=== PATIENT | female | born 1980 | race Caucasian/White ===

== ENCOUNTER 2020-08-04 07:50 | Inpatient (IN) | payer MEDICAID ==
--- NOTE | 2020-08-01 11:00 | NUR ---
ELEVATED BLOOD PRESSURE-170/118, REPEAT 149/92, PATIENT STATES SHE DIDN'T TAKE BLOOD PRESSURE MEDICATION TODAY, INSTRUCTED TO TAKE BP MED CRUZ
[2020-08-01 11:02] LABS: BASOPHILS 0.6 % (0-2); EOSINOPHILS 3.3 % (0-7); HEMATOCRIT 44.1 % (36.0-48.0); HEMOGLOBIN 14.5 g/dL (12-16); IMMATURE GRANULOCYTES 0.6 % (0-5); LYMPHOCYTE ABS# 1.68 10x3/uL (1.18-3.74); LYMPHOCYTES 23.4 % (15-50); MCH 32.7 pg (26.0-34.0); MCHC 32.9 g/dL (31.0-37.0); MCV 99.5 fL (80.0-100.0); MEAN PLATELET VOLUME 9.2 fL (7.4-10.4); MONOCYTES 6.3 % (2-11); NEUTROPHIL ABS# 4.73 10x3/uL (1.56-6.13); NEUTROPHILS 65.8 % (40-80); PLATELET COUNT 212 10x3/uL (130-400); RBC 4.43 10x6/uL (4.00-5.40); RDW 13.2 % (11.5-14.5); WBC 7.2 10x3/uL (4.8-10.8)
[2020-08-01 11:08] LABS: ANION GAP 8.7 mmol/L (8-16); CALCIUM 8.6 mg/dL (8.5-10.1); CARBON DIOXIDE 29.4 mmol/L (21.0-32.0); CREATININE - SERUM 1.1 mg/dL (0.6-1.3); POTASSIUM - SERUM 4.1 mmol/L (3.5-5.1)
[2020-08-01 11:17] LABS: BILIRUBIN NEGATIVE (NEGATIVE); KETONE NEGATIVE (NEGATIVE); NITRITE NEGATIVE (NEGATIVE); UROBILINOGEN NORMAL mg/dL (< 2)
[2020-08-01 11:19] LABS: APTT 26.1 SECONDS (22.8-39.4); INR 0.99 (0.85-1.17); PROTIME 12.1 SECONDS (11.6-15.0)
[2020-08-04] VITALS (11 sets, daily range): BP systolic 113–159; BP diastolic 61–110; Ht 170.2 cm; Wt 103.6 kg
[~2020-08-04] VITALS: Ht 170.2 cm; Wt 103.6 kg
--- NOTE | ~2020-08-04 | OP ---
PATIENT NAME: COLIN WALLACE MEDICAL RECORD: [id number] :80 LOCATION:D. D.1207 ADMISSION DATE: SURGEON: STUART LAO MD DATE OF OPERATION: 08/04/2020 PREOPERATIVE DIAGNOSES: 1. Osteoarthritis, right knee. 2. Painful right partial knee replacement. POSTOPERATIVE DIAGNOSES: 1. Osteoarthritis, right knee. 2. Painful right partial knee replacement. PROCEDURES PERFORMED: 1. Right total knee arthroplasty. 2. Removal of patellofemoral component, right knee. INDICATIONS FOR THE PROCEDURE: Ms. Wallace is a 39-year-old female with history of right patellofemoral replacement per Dr. Dudley approximately 3 years ago. She has been having worsening pains in the knee for the last year or so. Attempted injections without much relief and she has elected to proceed with right total knee arthroplasty. Risks, benefits and alternatives of surgery were discussed with the patient and consent was obtained. DESCRIPTION OF THE PROCEDURE: The patient was met in the holding area where her identity and confirmation of procedure was performed. The right lower extremity was marked. She was taken to the operating room where she was placed supine on the operating table and anesthesia was administered. A tourniquet was applied to the right leg. The right leg was prepped and draped in a sterile fashion. The patient received preoperative antibiotics as well as TXA and a timeout was performed before initiating the case. On initiation of the case, the leg was exsanguinated and the tourniquet was raised. Total tourniquet time was 115 minutes. The knee was positioned in flexion. An incision was made over the anterior knee in line with her previous incision. We dissected down to the extensor mechanism and the Ethibond suture was easily identified. We incised through the quad tendon along its medial border curving medially around the patella and down the medial border of the patellar tendon. The Ethibond suture was removed with rongeur. The knee was then taken into extension and tissue along the posterior fat pad of the patella and over the anterior distal femur was released. The implant appeared to be well fixed without any evidence of infection or other abnormalities. Flap of tissue was elevated off the medial tibial plateau and a portion of the medial meniscus was excised. Patella was then everted. The knee was taken into flexion. On inspection of the patella, there was a bone spur along its lateral border and a small area that had rubbed superiorly. The remainder of the patella was well fixed and in good condition. The tissue from around the patella was debrided. The femoral implant was then removed using osteotomes under the lateral edge, we were then able to easily tap it with minimal bone loss. We then continued with our procedure for primary total knee arthroplasty. Our femoral tunnel was drilled and our femoral guide was inserted. The distal femoral cutting block was then pinned into position. Our distal femur cut was completed. The femur was then sized to a size 4 and our 4-in-1 cutting block was pinned into place. Anterior, posterior and chamfer cuts were then completed and were smoothed with our previous cut. No additional bone was required to be removed off the anterior cortex. The osteophytes were then removed from around the edges of the distal femur. There had been OPERATIVE REPORT [id number] COLIN WALLACE significant wear into the cartilage of the lateral femoral condyle from the implant, which was likely the source of her pain. The femoral trial for our box cut was then placed and adjusted for position over the distal femur and then pinned into place. A box cut was completed using reciprocating saw and osteotome. We then moved to the tibia. Our femur was retracted posteriorly and our tibia was brought forward. Extramedullary tibial guide was placed and adjusted for alignment taking 4 mm off the medial tibial plateau. Our tibial cut was completed and the tibia was sized to a size 3. We then placed our femoral trial and trialed this with a size 9 poly, it was felt to be a little tight. We therefore removed these components and replaced our tibial cutting guide taking an additional 3 mm off the tibial plateau. It was again sized to a size 3 and the tibial component was pinned into place. This was again trialled with the femur and a size 10 and 11 poly, felt to have good fit and stability throughout range of motion with the 11 poly. The poly and the femoral component were removed and her tibia was prepared using a punch. The laminar concrete spreader was then inserted. Osteophytes were removed from the posterior aspect of the distal femur. Knee was then irrigated thoroughly with saline. The patellar component was well fixed and therefore did not require any further procedures. The knee was irrigated thoroughly with saline. The joint solution was injected around the capsule of the proximal tibia and the distal femur. Knee was repositioned in flexion and bony ends were dried. Our final components were then cemented into place and excess cement was removed throughout this process. The trial poly was placed and the knee was held in full extension while the cement was allowed to dry. We then trialed this with a size 10 and 11 poly, felt to have good fit and stability with the 11 final and our final size 11 posterior stabilized poly was placed and tapped into position. It was taken through range of motion, had good fit and stability throughout range of motion. Good tracking of the patella. The knee was irrigated thoroughly with saline. A drain was placed in the lateral gutter. The extensor mechanism was closed with 0 Vicryl suture. Subcutaneous tissue was irrigated thoroughly with saline. Subcutaneous tissue was closed with 3-0 Vicryl and the skin was closed with jassi. Sterile dressing was placed. The patient was turned back over to anesthesia where she was awakened, extubated, and taken to recovery room in stable condition. POSTOPERATIVE PLAN: The patient is going to be admitted for routine postoperative care. She will receive 24 hours of postoperative antibiotics and will be started on DVT prophylaxis tomorrow. Physical therapy will be consulted to assist with mobilization, weightbearing as tolerated, right lower extremity. Plan home with home health upon discharge. ANESTHESIA: Spinal with peripheral nerve block. COMPLICATIONS: None. ESTIMATED BLOOD LOSS: 100 mL. TRANSINT:[id number] Voice Confirmation ID: [id number] DOCUMENT ID: [id number] OPERATIVE REPORT [id number] COLIN WALLACE BRENT M MD CC: [id number] DICTATION DATE: 08/04/20 1526 ASSISTANT PROFESSOR OF BIOLOGY: 08/04/[address] [facility] [address] [place] [address]
[2020-08-04] MEDS ORDERED: ABILIFY10 MG PO (08:13)
[2020-08-04] MEDS ORDERED: TOPAMAX50 MG PO (08:14)
[2020-08-04] MEDS ORDERED: CYMBALTA60 MG PO (08:15)
[2020-08-04] MEDS ORDERED: CELEBREX200 MG PO (08:15)
[2020-08-04] MEDS ORDERED: ROPINIROLE HCL4 M1 PO (08:15)
[2020-08-04] MEDS ORDERED: GABAPENTIN300 MG PO (08:16)
[2020-08-04] MEDS ORDERED: TOPROL XL50 MG PO (08:16)
--- NOTE | 2020-08-04 19:00 | NUR ---
REPORT GIVEN BY MAGALI ROSE
--- NOTE | 2020-08-04 19:00 | NUR ---
REPORT GIVEN BY MAGALI MARTINEZ
--- NOTE | 2020-08-04 20:00 | NUR ---
WENT BY PT ROOM TO INTROCUCE MYSELF. PT UNDERSTANDS THAT I WILL BE BACK LATER FOR FULL ASSESSMENT
--- NOTE | 2020-08-04 20:30 | NUR ---
ASSESSMENT COMPLETED. PT HAS BEEN AWAKE, ALERT AND ORIENTED ALL SHIFT. NO C/O PAIN AT THIS TIME. I JUST TOOK PT CMP OFF. SHE HAS A MONTOYA CATHETER IN PLACE. SHE IS SUPPOSED TO LUIS O2 AT 2L BUT SHE HAS THIS OFF NOW. HER PULSES IN HER FEET ARE GOOD. SHE HAS SOME NERUOPATHY IN BLE. SHE HAS AN IV IN HER LEFT HAND. PT ENCOURAGED TO ASK FOR PAIN MEDS BEFORE SHE STARTS HURTING TOO MUCH. SHE STATES SHE WILL.
--- NOTE | 2020-08-04 22:00 | NUR ---
PT IS RESTING WELL AT THIS POINT. SHE HAS NOT ASKED FOR ANY PAIN MEDS.
--- NOTE | 2020-08-04 23:45 | NUR ---
NORCO 7.5 2 GIVEN FOR PAIN RATING OF 7.
[2020-08-05] VITALS: BP 113/73
--- NOTE | 2020-08-05 00:15 | NUR ---
PT RATES HER PAIN A 4 NOW. PT GOING TO SLEEP NOW.
--- NOTE | 2020-08-05 03:18 | NUR ---
PT IS RESTING QUIETLY WITHOUT C/O
[2020-08-05 04:00] VITALS: BP 114/74
--- NOTE | 2020-08-05 04:09 | NUR ---
PT C/O PAIN AT INCISION SITE. NORCO 7.5 X 2 GIVEN.
--- NOTE | 2020-08-05 05:59 | NUR ---
MONTOYA REMOVED. REMOVED 1550 ML PAIN BETTER. MOVING AROUND IN BED WELL
[2020-08-05 07:00] VITALS: BP 124/67
[2020-08-05 07:21] LABS: ALBUMIN 3.3 g/dL (3.4-5.0); ANION GAP 12.9 mmol/L (8-16); BILIRUBIN - TOTAL 0.21 mg/dL (0.2-1.3); CREATININE - SERUM 1.2 mg/dL (0.6-1.3); POTASSIUM - SERUM 3.9 mmol/L (3.5-5.1); PROTEIN - SERUM 6.6 g/dL (6.4-8.2)
[2020-08-05 07:26] LABS: BASOPHILS 0.1 % (0-2); EOSINOPHILS 0 % (0-7); HEMATOCRIT 38.2 % (36.0-48.0); HEMOGLOBIN 12.2 g/dL (12-16); IMMATURE GRANULOCYTES 0.3 % (0-5); LYMPHOCYTE ABS# 0.85 10x3/uL (1.18-3.74); LYMPHOCYTES 5.7 % (15-50); MCH 32.2 pg (26.0-34.0); MCHC 31.9 g/dL (31.0-37.0); MCV 100.8 fL (80.0-100.0); MEAN PLATELET VOLUME 9.6 fL (7.4-10.4); MONOCYTES 3.6 % (2-11); NEUTROPHIL ABS# 13.53 10x3/uL (1.56-6.13); NEUTROPHILS 90.3 % (40-80); PLATELET COUNT 227 10x3/uL (130-400); RBC 3.79 10x6/uL (4.00-5.40); RDW 13.7 % (11.5-14.5)
--- NOTE | 2020-08-05 09:07 | NUR ---
THERAPY PRESENT WITH PT. PT DENIES ANY COMPLAINTS AT PRESENT TIME.
--- NOTE | 2020-08-05 13:29 | MORECARE ---
CASE MANAGEMENT DISCHARGE SUMMARY PATIENT: COLIN GILES UNIT: [id number] ADM DATE: 08/04/20 AGE: 39 : 80 SEX: F ROOM/BED: D.1207 AUTHOR: DELVIS GASCA PHYSICIAN: REFERRING PHYSICIAN: STUART LAO MD DATE OF SERVICE: 08/05/20 Discharge Plan Patient Name: COLIN GILES Facility: [facility]:[place] : 1980 Planned Disposition: Home with Home Health Anticipated Discharge Date: Discharge Date: Expected LOS: Initial Reviewer: [email or web address] Initial Review Date: 08/04/2020 Generated: 08/05/20 2:29 pm Comments DCP- Discharge Planning Updated by [email or web address]: Obinna Palma on 08/05/20 12:[address] CM met with patient to complete DC plan and to evaluate needs. CM verified patient's address, phone number, and emergency contact phone numbers. Patient lives independently at home with her , Mauricio Giles ([phone]). At discharge, the patient plans to return home and feels this is a safe discharge. CM discussed availability of home health, rehab services, and medical equipment. Patient declined SNF and IPR. Patient stated that she already has the CPM and bedside commode. Patient further stated that she has a walker. Patient stated that she would like to have home health PT/OT with any company that is in network. ANURADHA signed and placed on chart for [facility], and Philip. Spoke with Charis of Care [facility], clinicals Faxed to [facility]. Patient voiced no other needs at this time and is satisfied with DC plan. Transportation provider at discharge will be with her Mauricio. CM will continue to follow and will assist as needed with dc plans/needs. External Providers External Provider: [facility] Next Contact Date: Service Request Date: Service Type: Resolution: Reviewer: Comments: Patient Name: COLIN GILES Page [phone] at 1329 All edits/amendments must be made on the electronic document DICTATION DATE: 08/05/20 1329 SCALE EXPERT: ADONIS 08/05/20 1329 RPT#: [id number] DC DATE: STATUS: ADM IN [facility] [address] [place] [address] END OF REPORT
--- NOTE | 2020-08-05 13:37 | MORECARE ---
CASE MANAGEMENT DISCHARGE SUMMARY PATIENT: COLIN GILES UNIT: [id number] ADM DATE: 08/04/20 AGE: 39 : 80 SEX: F ROOM/BED: D.1207 AUTHOR: CAMPOS,DOC PHYSICIAN: REFERRING PHYSICIAN: STUART LAO MD DATE OF SERVICE: 08/05/20 Discharge Plan Patient Name: COLIN GILES Facility: [facility]:[place] : 1980 Planned Disposition: Home with Home Health Anticipated Discharge Date: Discharge Date: Expected LOS: Initial Reviewer: [email or web address] Initial Review Date: 08/04/2020 Generated: 08/05/20 2:37 pm Comments DCP- Discharge Planning Updated by QING: Obinna Palma on 08/05/20 12:[address] CM met with patient to complete DC plan and to evaluate needs. CM verified patient's address, phone number, and emergency contact phone numbers. Patient lives independently at home with her , Mauricio Giles ([phone]). At discharge, the patient plans to return home and feels this is a safe discharge. CM discussed availability of home health, rehab services, and medical equipment. Patient declined SNF and IPR. Patient stated that she already has the CPM and bedside commode. Patient further stated that she has a walker. Patient stated that she would like to have home health PT/OT with any company that is in network. ANURADHA signed and placed on chart for Care [facility], Mirella, and Philip. Spoke with Charis of Care [facility], clinicals Faxed to Care [facility]. Patient voiced no other needs at this time and is satisfied with DC plan. Transportation provider at discharge will be with her Mauricio. CM will continue to follow and will assist as needed with dc plans/needs. DCPIA - Discharge Planning Initial Assessment Updated by QING: Obinna Palma on 08/05/20 1:32 pm * Is the patient Alert and Oriented? Yes * How many steps to enter\exit or inside your home? 5/0 * PCP OLGA * [facility] * Preadmission Environment Home with Family * ADLs Independent * Equipment Bedside Commode Crutch Walker * Other Equipment CPM * List name and contact numbers for known caregivers / representatives who currently or will assist patient after discharge: MAURICIO GILES - SPOUSE - [phone] * Verbal permission to speak to the caregivers and representatives has been obtained from the patient. Yes * Community resources currently utilized None * Please name any agencies selected above. N/A * Additional services required to return to the preadmission environment? Yes * Can the patient safely return to the preadmission environment? Yes * Has this patient been hospitalized within the prior 30 days at any hospital? No Coverage Notice Reviewer: [email or web address] Karl Palma Notice Issued Date-Time: 08/05/2020 12:50 Notice Type: Patient Choice Letter Notice Delivered To: Patient Relationship to Patient: Self Wood Last Maker Name: Delivery Method: HAND - Hand Delivered Lorena Days: Prior Verbal Notification: Recipient Understood Notice: Yes Recipient Signature: Yes Med Rec Note Co-signed by Attending: Coverage Notice Comment: [facility] Last DP export: 08/05/20 12:29 pm Patient Name: COLIN GILES Page [phone] at 1337 All edits/amendments must be made on the electronic document DICTATION DATE: 08/05/20 1337 PARTY COORDINATOR: ADONIS 08/05/20 1337 RPT#: [id number] DC DATE: STATUS: ADM IN [facility] [address] [place] [address] END OF REPORT
--- NOTE | 2020-08-05 15:58 | MORECARE ---
CASE MANAGEMENT DISCHARGE SUMMARY PATIENT: COLIN GILES UNIT: [id number] ADM DATE: 08/04/20 AGE: 39 : 80 SEX: F ROOM/BED: D.1207 AUTHOR: CAMPOS,DOC PHYSICIAN: REFERRING PHYSICIAN: STUART LAO MD DATE OF SERVICE: 08/05/20 Discharge Plan Patient Name: COLIN GILES Facility: [facility]:[place] : 1980 Planned Disposition: Home with Home Health Anticipated Discharge Date: Discharge Date: Expected LOS: Initial Reviewer: [email or web address] Initial Review Date: 08/04/2020 Generated: 08/05/20 4:58 pm Comments DCP- Discharge Planning Updated by QING: Obinna Palma on 08/05/20 12:[address] CM met with patient to complete DC plan and to evaluate needs. CM verified patient's address, phone number, and emergency contact phone numbers. Patient lives independently at home with her , Mauricio Giles ([phone]). At discharge, the patient plans to return home and feels this is a safe discharge. CM discussed availability of home health, rehab services, and medical equipment. Patient declined SNF and IPR. Patient stated that she already has the CPM and bedside commode. Patient further stated that she has a walker. Patient stated that she would like to have home health PT/OT with any company that is in network. ANURADHA signed and placed on chart for Care [facility], Mirella, and Philip. Spoke with Charis of Care [facility], clinicals Faxed to Care [facility]. Patient voiced no other needs at this time and is satisfied with DC plan. Transportation provider at discharge will be with her Mauricio. CM will continue to follow and will assist as needed with dc plans/needs. DCPIA - Discharge Planning Initial Assessment Updated by [id number]: Obinna Palma on 08/05/20 1:32 pm * Is the patient Alert and Oriented? Yes * How many steps to enter\exit or inside your home? 5/0 * PCP OLGA * Pharmacy [facility] * Preadmission Environment Home with Family * ADLs Independent * Equipment Bedside Commode Crutch Walker * Other Equipment CPM * List name and contact numbers for known caregivers / representatives who currently or will assist patient after discharge: MAURICIO GILES - SPOUSE - [phone] * Verbal permission to speak to the caregivers and representatives has been obtained from the patient. Yes * Community resources currently utilized None * Please name any agencies selected above. N/A * Additional services required to return to the preadmission environment? Yes * Can the patient safely return to the preadmission environment? Yes * Has this patient been hospitalized within the prior 30 days at any hospital? No Coverage Notice Reviewer: [email or web address] Karl Palma Notice Issued Date-Time: 08/05/2020 12:50 Notice Type: Patient Choice Letter Notice Delivered To: Patient Relationship to Patient: Self Civil Clerk Name: Delivery Method: HAND - Hand Delivered Lorena Days: Prior Verbal Notification: Recipient Understood Notice: Yes Recipient Signature: Yes Med Rec Note Co-signed by Attending: Coverage Notice Comment: [facility] H[facility] Last DP export: 08/05/20 12:37 pm Patient Name: COLIN GILES Page [phone] at 1558 All edits/amendments must be made on the electronic document DICTATION DATE: 08/05/20 1558 SOD FARMER: ADONIS 08/05/20 1558 RPT#: [id number] DC DATE: STATUS: ADM IN [facility] [address] [place] [address] END OF REPORT
[2020-08-05] MEDS ORDERED: HYDROCODONE-AC1 EAC2 PO (16:42)
[2020-08-05] MEDS ORDERED: ELIQUIS2.5 MG PO (16:43)
--- NOTE | 2020-08-06 07:18 | MORECARE ---
CASE MANAGEMENT DISCHARGE SUMMARY PATIENT: COLIN GILES UNIT: [id number] ADM DATE: 08/04/20 AGE: 39 : 80 SEX: F ROOM/BED: D.1207 AUTHOR: CAMPOS,DOC PHYSICIAN: REFERRING PHYSICIAN: STUART LAO MD DATE OF SERVICE: 08/06/20 Discharge Plan Patient Name: COLIN GILES Facility: [facility]:[place] : 1980 Planned Disposition: Home with Home Health Anticipated Discharge Date: Discharge Date: 08/05/2020 Expected LOS: 0 Initial Reviewer: [email or web address] Initial Review Date: 08/04/2020 Generated: 08/06/20 8:18 am DCP- Discharge Planning Updated by QING: Obinna Palma on 08/05/20 12:[address] CM met with patient to complete DC plan and to evaluate needs. CM verified patient's address, phone number, and emergency contact phone numbers. Patient lives independently at home with her , Mauricio Giles ([phone]). At discharge, the patient plans to return home and feels this is a safe discharge. CM discussed availability of home health, rehab services, and medical equipment. Patient declined SNF and IPR. Patient stated that she already has the CPM and bedside commode. Patient further stated that she has a walker. Patient stated that she would like to have home health PT/OT with any company that is in network. ANURADHA signed and placed on chart for Care [facility], Mirella, and Philip. Spoke with Charis of [facility], clinicals Faxed to [facility]. Patient voiced no other needs at this time and is satisfied with DC plan. Transportation provider at discharge will be with her Mauricio. CM will continue to follow and will assist as needed with dc plans/needs. DCPIA - Discharge Planning Initial Assessment Updated by [id number]: Obinna Palma on 08/05/20 1:32 pm * Is the patient Alert and Oriented? Yes * How many steps to enter\exit or inside your home? 5/0 * PCP OLGA * Pharm[facility] * Preadmission Environment Home with Family * ADLs Independent * Equipment Bedside Commode Crutch Walker * Other Equipment CPM * List name and contact numbers for known caregivers / representatives who currently or will assist patient after discharge: MAURICIO GILES - SPOUSE - [phone] * Verbal permission to speak to the caregivers and representatives has been obtained from the patient. Yes * Community resources currently utilized None * Please name any agencies selected above. N/A * Additional services required to return to the preadmission environment? Yes * Can the patient safely return to the preadmission environment? Yes * Has this patient been hospitalized within the prior 30 days at any hospital? No Coverage Notice Reviewer: [email or web address] Karl Palma Notice Issued Date-Time: 08/05/2020 12:50 Notice Type: Patient Choice Letter Notice Delivered To: Patient Relationship to Patient: Self Lead Painter Name: Delivery Method: HAND - Hand Delivered Lorena Days: Prior Verbal Notification: Recipient Understood Notice: Yes Recipient Signature: Yes Med Rec Note Co-signed by Attending: Coverage Notice Comment: [facility] Last DP export: 08/05/20 2:58 pm Patient Name: COLIN GILES Page [phone] at 0718 All edits/amendments must be made on the electronic document DICTATION DATE: 08/06/20717 PHYSICIAN PRACTICE CONSULTANT: ADONIS 08/06/20717 RPT#: [id number] DC DATE:08/05/20 STATUS: DIS IN [facility] [address] [place] [address] END OF REPORT
== END 2020-08-05 17:37 | disposition home health service (06) | DRG 468 ==
LOC: D.OPS 07:50 → D.M3 15:47 → D.OPS 15:48 → D.M3 15:48
PROVIDERS: Emergency Medicine; ADMIT Orthopaedic Surgery; ATTEND Orthopaedic Surgery
PROC: 0SRC0J9 Replacement of Right Knee Joint with Synthetic Substitute, Cemented, Open Approach (ICD-10-PCS; 2020-08-04)
PROC: 0SPC0NZ Removal of Patellofemoral Synthetic Substitute from Right Knee Joint, Open Approach (ICD-10-PCS; principal; 2020-08-04 10:30)
DX: T84.84XA Pain due to internal orthopedic prosthetic devices, implants and grafts, initial encounter (principal); X58.XXXA Exposure to other specified factors, initial encounter; M17.11 Unilateral primary osteoarthritis, right knee